=== PATIENT | male | born 1990 | race Caucasian/White ===

== ENCOUNTER 2025-03-15 18:12 | Emergency (ER) | payer SELFPAY ==
[2025-03-15] MEDS ORDERED: Ibuprofen 800 MG TAB ONE (19:52)
== END 2025-03-15 19:56 | disposition home or self-care (01) ==
LOC: ERS 18:12
DX: B34.9 Viral infection, unspecified (principal); F17.210 Nicotine dependence, cigarettes, uncomplicated
CPT/HCPCS: 87428; 99283